=== PATIENT | male | born 1965 | race African-American/Black ===

== ENCOUNTER 2020-12-12 11:33 | Inpatient (IN) | payer OTHER ==
[2020-12-12 12:21] VITALS: BMI 35.1
[2020-12-12] MEDS ORDERED: MENTHOL/PHENOL 1 EACH UD MM PRN (12:49)
[2020-12-12] MEDS ORDERED: MAGNESIUM CITRATE 300 ML BOTTLE PO PRN (12:49)
[2020-12-12] MEDS ORDERED: IBUPROFEN 400 MG TABLET (FP) PO PRN (12:49)
[2020-12-12] MEDS ORDERED: BISMUTH SUBSALICYLATE 524 MG/30 ML PO PRN (12:49)
[2020-12-12] MEDS ORDERED: MAG HYDROX/AL HYDROX/SIMETH 30 ML UNIT-DOSE CUP PO PRN (12:49)
[2020-12-12] MEDS ORDERED: MAGNESIUM HYDROX 2400MG/30ML ORAL SUSPENSION 30 ML CUP PO PRN (12:49)
[2020-12-12] MEDS ORDERED: ACETAMINOPHEN 325 MG TABLET (FP) PO PRN ×2 (12:49)
[2020-12-12] MEDS ORDERED: ONDANSETRON *ODT* 4 MG TABLET SL PRN (12:49)
[2020-12-12] MEDS ORDERED: METHOCARBAMOL 500 MG TABLET PO PRN (12:49)
[2020-12-12] MEDS ORDERED: diazePAM 5 MG TABLET PO ONE (12:51)
[2020-12-12] MEDS ORDERED: METOPROLOL TARTRATE 25 MG TABLET (FP) PO ONE (12:52)
[2020-12-12] MEDS ORDERED: diazePAM 5 MG TABLET ONE (12:57)
[2020-12-12 14:36] LABS: HEMATOCRIT 39.1 % (35.4-49); HEMOGLOBIN 13.1 GM/dL (11.7-16.9); MCH 35.5 pg (25.7-33.7); MCHC 33.6 g/dl (32.0-35.9); MEAN CELL VOLUME 105.7 fl (80-96); MEAN PLT VOLUME 7.2 fl (7.5-11.1); PLATELET COUNT 186 K/MM3 (134-434); RDW 14.3 % (11.9-15.9); WHITE BLOOD COUNT 4.6 K/mm3 (4.0-10.0)
[2020-12-12 14:43] LABS: ALBUMIN 4.1 g/dl (3.4-5.0); BLOOD UREA NITROGEN 4.2 mg/dL (7-18); CALCIUM 8.8 mg/dL (8.5-10.1)
[2020-12-12 14:46] LABS: CREATININE 0.8 mg/dL (0.55-1.3)
[2020-12-12 14:48] LABS: BILIRUBIN,TOTAL 1.2 mg/dL (0.2-1); TOT PROT 7.6 g/dl (6.4-8.2)
[2020-12-12] MEDS: diazePAM 5 MG TABLET PO SCH ×2 (17:27→22:22)
[2020-12-12] MEDS ORDERED: POTASSIUM CHLORIDE TABS 20 MEQ TABLET.ER (FP) PO ONE (19:00)
[2020-12-12] MEDS: THIAMINE HCL 100 MG TABLET (FP) PO SCH (22:21)
[2020-12-12] MEDS: MELATONIN 5 MG TABLETS PO SCH (22:22)
[2020-12-13] MEDS: diazePAM 5 MG TABLET PO SCH ×4 (05:12→22:25)
[2020-12-13] MEDS ORDERED: DICYCLOMINE HCL 10 MG CAPSULE PO ONE (09:58)
[2020-12-13] MEDS ORDERED: POTASSIUM CHLORIDE ORAL LIQUID 20 MEQ/15 ML PO ONE (10:00)
[2020-12-13] MEDS: PRENATAL VITAMINS W/ FOLIC ACID TABLET (FP) PO SCH (10:05)
[2020-12-13] MEDS: SIMETHICONE 80 MG TAB.CHEW (FP) PO SCH ×4 (11:13→22:27)
[2020-12-13] MEDS: THIAMINE HCL 100 MG TABLET (FP) PO SCH (22:26)
[2020-12-13] MEDS: MELATONIN 5 MG TABLETS PO SCH (22:27)
[2020-12-14] MEDS: diazePAM 5 MG TABLET PO SCH ×3 (05:38→22:01)
[2020-12-14] MEDS ORDERED: cloNIDine HCL 0.1 MG TABLET PO PRN (09:57)
[2020-12-14] MEDS: PRENATAL VITAMINS W/ FOLIC ACID TABLET (FP) PO SCH (10:04)
[2020-12-14] MEDS: diazePAM 5 MG TABLET PO PRN ×2 (10:04→17:20)
[2020-12-14] MEDS: SIMETHICONE 80 MG TAB.CHEW (FP) PO SCH ×4 (10:05→22:02)
[2020-12-14 11:38] LABS: ALBUMIN 3.3 g/dl (3.4-5.0)
[2020-12-14 11:41] LABS: BILIRUBIN,DIRECT 0.5 mg/dL (0.0-0.2)
[2020-12-14 11:43] LABS: BILIRUBIN,TOTAL 1.2 mg/dL (0.2-1); TOT PROT 6.2 g/dl (6.4-8.2)
[2020-12-14] MEDS ORDERED: POTASSIUM CHLORIDE ORAL LIQUID 20 MEQ/15 ML PO ONE (12:30)
[2020-12-14] MEDS: THIAMINE HCL 100 MG TABLET (FP) PO SCH (22:01)
[2020-12-14] MEDS: MELATONIN 5 MG TABLETS PO SCH (22:02)
[2020-12-15] MEDS: diazePAM 5 MG TABLET PO SCH ×2 (05:35→17:40)
[2020-12-15] MEDS: PRENATAL VITAMINS W/ FOLIC ACID TABLET (FP) PO SCH (10:09)
[2020-12-15] MEDS: HYDROCHLOROTHIAZIDE 25 MG TABLET (FP) PO SCH (10:10)
[2020-12-15] MEDS: SIMETHICONE 80 MG TAB.CHEW (FP) PO SCH ×4 (10:47→22:15)
[2020-12-15] MEDS: POTASSIUM CHLORIDE ORAL LIQUID 20 MEQ/15 ML PO SCH ×2 (13:16→22:15)
[2020-12-15] MEDS: THIAMINE HCL 100 MG TABLET (FP) PO SCH (22:15)
[2020-12-15] MEDS: MELATONIN 5 MG TABLETS PO SCH (22:15)
[2020-12-16] MEDS ORDERED: diazePAM 5 MG TABLET PO ONE (06:00)
[2020-12-16 06:08] LABS: SARS-CoV-2 NAA Not Detected (Not Detected)
[2020-12-16 10:00] VITALS: BP 121/82; PULSE 131; TEMP 98.1
[2020-12-16] MEDS: PRENATAL VITAMINS W/ FOLIC ACID TABLET (FP) PO SCH (10:26)
[2020-12-16] MEDS: POTASSIUM CHLORIDE ORAL LIQUID 20 MEQ/15 ML PO SCH (10:26)
[2020-12-16] MEDS: SIMETHICONE 80 MG TAB.CHEW (FP) PO SCH (10:27)
[2020-12-16] MEDS: HYDROCHLOROTHIAZIDE 25 MG TABLET (FP) PO SCH (10:27)
== END 2020-12-16 13:42 | disposition other institution (70) | DRG 775 ==
LOC: YASAS 11:33 → Y6N 12:53
PROVIDERS: ADMIT Allergy & Immunology; ATTEND Allergy & Immunology
PROC: HZ2ZZZZ Detoxification Services for Substance Abuse Treatment (ICD-10-PCS; principal; 2020-12-12)
DX: F10.230 Alcohol dependence with withdrawal, uncomplicated (principal); R60.0 Localized edema; R74.01 Elevation of levels of liver transaminase levels; R79.89 Other specified abnormal findings of blood chemistry; Z87.891 Personal history of nicotine dependence
CPT/HCPCS: 36415; 71045-TC-FY; 80053; 80076; 82962; 84132; 85027; 86780; 93005; 93010; C9803; J0735; Q0162; U0003; U0005

== ENCOUNTER 2020-12-16 12:39 | Inpatient (IN) | payer OTHER ==
[2020-12-16] MEDS ORDERED: MAGNESIUM HYDROX 2400MG/30ML ORAL SUSPENSION 30 ML CUP PO PRN (14:41)
[2020-12-16] MEDS ORDERED: MENTHOL/PHENOL 1 EACH UD MM PRN (14:41)
[2020-12-16] MEDS ORDERED: LOPERAMIDE HCL 2 MG CAPSULE PO PRN (14:41)
[2020-12-16] MEDS ORDERED: P-EPHED 60MG/TRIPROLIDI 2.5MG TABLET PO PRN (14:41)
[2020-12-16] MEDS ORDERED: NICOTINE POLACRILEX 2 MG GUM BUC PRN (14:41)
[2020-12-16] MEDS ORDERED: MAGNESIUM CITRATE 300 ML BOTTLE PO PRN (14:41)
[2020-12-16] MEDS ORDERED: MAG HYDROX/AL HYDROX/SIMETH 30 ML UNIT-DOSE CUP PO PRN (14:41)
[2020-12-16] MEDS ORDERED: IBUPROFEN 400 MG TABLET (FP) PO PRN (14:41)
[2020-12-16] MEDS ORDERED: ACETAMINOPHEN 325 MG TABLET (FP) PO PRN (14:41)
[2020-12-16] MEDS ORDERED: guaiFENesin 200 MG/10 ML 10 ML UNIT-DOSE CUPS PO PRN (14:41)
[2020-12-16] MEDS: MELATONIN 5 MG TABLETS PO SCH (21:30)
[2020-12-16] MEDS: THIAMINE HCL 100 MG TABLET (FP) PO SCH (21:30)
[2020-12-16] MEDS: hydrOXYzine PAMOATE 25 MG CAPSULE (FP) PO PRN (21:32)
[2020-12-17] MEDS: hydrOXYzine PAMOATE 25 MG CAPSULE (FP) PO PRN ×2 (07:06→21:22)
[2020-12-17] MEDS: NICOTINE 7 MG/24 HOURS TOPICAL PATCH TD SCH (09:54)
[2020-12-17] MEDS: HYDROCHLOROTHIAZIDE 25 MG TABLET (FP) PO SCH (09:54)
[2020-12-17] MEDS: PRENATAL VITAMINS W/ FOLIC ACID TABLET (FP) PO SCH (09:54)
[2020-12-17] MEDS: THIAMINE HCL 100 MG TABLET (FP) PO SCH (21:22)
[2020-12-17] MEDS: MELATONIN 5 MG TABLETS PO SCH (21:22)
[2020-12-18] MEDS: PRENATAL VITAMINS W/ FOLIC ACID TABLET (FP) PO SCH (10:26)
[2020-12-18] MEDS: HYDROCHLOROTHIAZIDE 25 MG TABLET (FP) PO SCH (10:26)
[2020-12-18] MEDS: NICOTINE 7 MG/24 HOURS TOPICAL PATCH TD SCH (10:26)
[2020-12-18] MEDS: MELATONIN 5 MG TABLETS PO SCH (21:17)
[2020-12-18] MEDS: THIAMINE HCL 100 MG TABLET (FP) PO SCH (21:18)
[2020-12-19] MEDS: HYDROCHLOROTHIAZIDE 25 MG TABLET (FP) PO SCH (10:04)
[2020-12-19] MEDS: NICOTINE 7 MG/24 HOURS TOPICAL PATCH TD SCH (10:04)
[2020-12-19] MEDS: PRENATAL VITAMINS W/ FOLIC ACID TABLET (FP) PO SCH (10:04)
[2020-12-19] MEDS: MELATONIN 5 MG TABLETS PO SCH (21:21)
[2020-12-19] MEDS: THIAMINE HCL 100 MG TABLET (FP) PO SCH (21:21)
[2020-12-19] MEDS ORDERED: MASKS NR ONE (21:22)
[2020-12-20] MEDS: NICOTINE 7 MG/24 HOURS TOPICAL PATCH TD SCH (10:20)
[2020-12-20] MEDS: HYDROCHLOROTHIAZIDE 25 MG TABLET (FP) PO SCH (10:20)
[2020-12-20] MEDS: PRENATAL VITAMINS W/ FOLIC ACID TABLET (FP) PO SCH (10:20)
[2020-12-20] MEDS ORDERED: SUVOREXANT 10 MG TABLET PO PRN (14:43)
[2020-12-20] MEDS: THIAMINE HCL 100 MG TABLET (FP) PO SCH (21:22)
[2020-12-20] MEDS ORDERED: RAMELTEON 8 MG TABLET PO SCH (22:00)
[2020-12-21 08:02] VITALS: TEMP 97.7
[2020-12-21 09:44] VITALS: BP 136/94; PULSE 121
[2020-12-21] MEDS: PRENATAL VITAMINS W/ FOLIC ACID TABLET (FP) PO SCH (10:27)
[2020-12-21] MEDS: HYDROCHLOROTHIAZIDE 25 MG TABLET (FP) PO SCH (10:27)
[2020-12-21] MEDS: NICOTINE 7 MG/24 HOURS TOPICAL PATCH TD SCH (10:28)
== END 2020-12-21 13:15 | disposition home or self-care (01) | DRG 772 ==
LOC: YASAS 12:39 → Y3W 12:40
PROVIDERS: ADMIT Allergy & Immunology; ATTEND Allergy & Immunology
PROC: HZ42ZZZ Group Counseling for Substance Abuse Treatment, Cognitive-Behavioral (ICD-10-PCS; principal; 2020-12-16)
DX: F10.20 Alcohol dependence, uncomplicated (principal); F10.24 Alcohol dependence with alcohol-induced mood disorder; F10.282 Alcohol dependence with alcohol-induced sleep disorder; F91.8 Other conduct disorders; G47.00 Insomnia, unspecified; R00.1 Bradycardia, unspecified; Z87.891 Personal history of nicotine dependence; Z86.69 Personal history of other diseases of the nervous system and sense organs
CPT/HCPCS: 82962